=== PATIENT | female | born 1965 | race Caucasian/White ===

== ENCOUNTER 2016-08-08 20:37 | Emergency (ER) | payer OTHER ==
[~2016-08-08] VITALS: Ht 177.8 cm; Wt 75.0 kg
[2016-08-08 20:42] VITALS: BP 140/68; PULSE 76; RESP 18; TEMP 98.3; O2SAT 100
[2016-08-08] MEDS ORDERED: PARO1CAP PO (20:45)
[2016-08-08 20:51] VITALS: O2SAT 97
--- NOTE | 2016-08-08 20:54 | PD ---
HPI . Dizziness Chief Complaint: Neuro Symptoms/ Deficits Time Seen by Provider: 20:47 Travel History International Travel<30 days: No Contact w/Intl Traveler<30days: No Traveled to known affect area: No History of Present Illness HPI Patient presents with the chief complaint of dizziness. She states that she was eating dinner and she suddenly became extremely dizzy. She states that she remembers leaning over to her and telling him that she was dizzy. The next thing she remembers, she was here. She states that she does not recall getting in the car or coming here. She is now complaining with a mild occipital headache. She takes that it is dull and rates it as 4/10. The dizziness is much improved. PFSH Past Medical History Diminished Hearing: No Migraines: Yes Tetanus Vaccination: > 5 Years ?: Not Menopausal: Yes Past Surgical History Other Surgery: Yes (BREAST AUGMENTATION/RECONSTRUCTION 03/1999) Social History Alcohol Use: Yes (SOCIAL) Tobacco Use: No Substance Use: No Allergies-Medications (Allergen,Severity, Reaction): Coded Allergies: No Known Allergies (Unverified , 08/08/16) Reported Meds & Prescriptions Reported Meds & Active Scripts Active Reported Brisdelle (Paroxetine Mesylate) 7.5 Mg Cap 7.5 Mg PO DAILY Review of Systems Except as stated in HPI: all other systems reviewed are Neg General / Constitutional: No: Fever, Chills Eyes: No: Diploplia, Blurred Vision HENT: Positive: Headaches Cardiovascular: No: Chest Pain or Discomfort Respiratory: No: Shortness of Breath Gastrointestinal: No: Nausea, Vomiting Neurologic: Positive: Dizziness, Syncope, Headache, No: Weakness, Focal Abnormalities, Slurred Speech, Paresthesia, Incontinence Physical Exam Narrative GENERAL: Patient is now awake and alert and fully oriented. SKIN: Warm and dry. HEAD: Atraumatic. Normocephalic. EYES: Pupils equal and round. Extraocular movements are intact. ENT: No nasal bleeding or discharge. Mucous membranes pink and moist. NECK: Trachea midline. Neck is supple. CARDIOVASCULAR: Regular rate and rhythm. Heart sounds are normal. RESPIRATORY: No accessory muscle use. Lungs are clear with full air movement throughout. GASTROINTESTINAL: Abdomen soft, non-tender, nondistended. MUSCULOSKELETAL: No obvious deformities. No edema. NEUROLOGICAL: Awake and alert. No obvious cranial nerve deficits. Motor grossly within normal limits. Normal speech. NIH stroke score was 0. PSYCHIATRIC: Appropriate mood and affect; insight and judgment normal. Data Data Last Documented VS Vital Signs Date Time Temp Pulse Resp B/P Pulse Ox O2 Delivery O2 Flow Rate FiO2 08/08/16 21:00 76 17 137/64 100 Room Air 08/08/16 20:42 98.3 Orders Electrocardiogram (08/08/16 20:47) Basic Metabolic Panel (Bmp) (08/08/16 20:47) Complete Blood Count With Diff (08/08/16 20:47) Magnesium (Mg) (08/08/16 20:47) Ckmb (Isoenzyme) Profile (08/08/16 20:47) Troponin I (08/08/16 20:47) Ct Brain W/O Iv Contrast(Rout) (08/08/16 20:47) Ecg Monitoring (08/08/16 20:47) Iv Access Insert/Monitor (08/08/16 20:47) Oximetry (08/08/16 20:47) Sodium Chloride 0.9% Flush (Ns Flush) (08/08/16 21:00) Prochlorperazine Inj (Compazine Inj) (08/08/16 21:00) Diphenhydramine Inj (Benadryl Inj) (08/08/16 21:00) Labs Laboratory Tests Test 08/08/16 21:00 White Blood Count 6.9 TH/MM3 Red Blood Count 4.05 MIL/MM3 Hemoglobin 11.9 GM/DL Hematocrit 35.6 % Mean Corpuscular Volume 87.9 FL Mean Corpuscular Hemoglobin 29.2 PG Mean Corpuscular Hemoglobin 33.3 % Concent Red Cell Distribution Width 13.0 % Platelet Count 294 TH/MM3 Mean Platelet Volume 8.1 FL Neutrophils (%) (Auto) 42.9 % Lymphocytes (%) (Auto) 48.0 % Monocytes (%) (Auto) 7.2 % Eosinophils (%) (Auto) 1.4 % Basophils (%) (Auto) 0.5 % Neutrophils # (Auto) 3.0 TH/MM3 Lymphocytes # (Auto) 3.3 TH/MM3 Monocytes # (Auto) 0.5 TH/MM3 Eosinophils # (Auto) 0.1 TH/MM3 Basophils # (Auto) 0.0 TH/MM3 CBC Comment DIFF FINAL Differential Comment Sodium Level 138 MEQ/L Potassium Level 3.7 MEQ/L Chloride Level 103 MEQ/L Carbon Dioxide Level 27.2 MEQ/L Anion Gap 8 MEQ/L Blood Urea Nitrogen 14 MG/DL Creatinine 1.10 MG/DL Estimat Glomerular Filtration 53 ML/MIN Rate Random Glucose 170 MG/DL Calcium Level 9.0 MG/DL Magnesium Level 2.3 MG/DL Total Creatine Kinase 93 U/L Troponin I LESS THAN 0.02 NG/ML MDM Medical Decision Making Medical Screen Exam Complete: Yes Emergency Medical Condition: Yes Interpretation(s) EKG shows a normal sinus rhythm with no acute ischemic change. Differential Diagnosis My differential diagnosis of syncope includes but is not limited to cardiac arrhythmia, hypovolemia, anemia, neurological catastrophe, vasovagal response Narrative Course Patient presents complaining with dizziness followed by syncopal episode. Her physical exam on arrival is normal. Last Impressions Head CT 08/08/[id number] Signed Impressions: Service Date/Time: Wednesday, August 08, 2016 21:18 - CONCLUSION: Negative noncontrast CT brain. Hesham El MD CBC & BMP Diagram 08/08/16 21:00 Cardiac enzymes are negative. The patient's only symptom now is that she is very tired. She has been given Compazine and Benadryl. She prefers to go home. I believe that that is reasonable. The most likely etiology of her symptoms is vertigo. Diagnosis Primary Impression: Syncope Qualified Code: R55 - Syncope, unspecified syncope type Additional Impression: Dizziness Patient Instructions: Dizziness (ED), General Instructions Additional Instructions: Call your doctor Wednesday to arrange for a follow-up visit Disposition: DISCHARGE HOME Condition: Stable Sarah Spicer MD Aug 08, 2016 20:54
[2016-08-08 21:00] VITALS: BP 137/64; PULSE 76; RESP 17; O2SAT 100
[2016-08-08] MEDS ORDERED: diphenhydrAMINE HCL 50 MG/ML VIAL IV PUSH ONE (21:00)
[2016-08-08] MEDS ORDERED: SODIUM CHLORIDE 0.9% FLUSH 10 ML FLUSH IVF PRN (21:00)
[2016-08-08] MEDS ORDERED: PROCHLORPERAZINE INJ 10 MG/2 ML VIAL IV PUSH ONE (21:00)
[2016-08-08 21:20] LABS: RED BLOOD COUNT 4.05 MIL/MM3 (4.00-5.30); WHITE BLOOD COUNT 6.9 TH/MM3 (4.0-11.0)
[2016-08-08 21:21] LABS: BASOPHIL % 0.5 % (0.0-2.0); EOSINOPHIL # 0.1 TH/MM3 (0-0.4); EOSINOPHIL % 1.4 % (0.0-4.0); HEMATOCRIT 35.6 % (35.0-46.0); HEMO FLAGS DIFF FINAL; LYMPHOCYTE # 3.3 TH/MM3 (1.0-4.8); MEAN CELL VOLUME 87.9 FL (80.0-100.0); MEAN CORPUSCULAR HEMOGLOBIN 29.2 PG (27.0-34.0); MEAN CORPUSCULAR HGB CONC 33.3 % (32.0-36.0); MONO % 7.2 % (0.0-8.0); NEUT % 42.9 % (16.0-70.0); PLATELET COUNT 294 TH/MM3 (150-450)
[2016-08-08 21:46] LABS: ANION GAP 8 MEQ/L (5-15); BICARBONATE 27.2 MEQ/L (21.0-32.0); BLOOD UREA NITROGEN 14 MG/DL (7-18); CHLORIDE 103 MEQ/L (98-107); GLOMERULAR FILTRATION RATE 53 ML/MIN (>89); MAGNESIUM 2.3 MG/DL (1.5-2.5); POTASSIUM 3.7 MEQ/L (3.5-5.1); SODIUM (NA) 138 MEQ/L (136-145)
[2016-08-08 21:53] LABS: CREATINE KINASE 93 U/L (26-192)
--- NOTE | 2016-08-08 22:21 | RADRPT ---
EXAM DATE/TIME: 08/08/2016 21:18 [facility] COMPARISON: No previous studies available for comparison. INDICATIONS : Dizziness. RADIATION DOSE: 56.35 CTDIvol (mGy) MEDICAL HISTORY : Migraines. SURGICAL HISTORY : None. ENCOUNTER: Initial ACUITY: 1 day PAIN SCALE: 0/10 LOCATION: cranial TECHNIQUE: Multiple contiguous axial images were obtained of the head. Using automated exposure control and adj ustment of the mA and/or kV according to patient size, radiation dose was kept as low as reasonably a chievable to obtain optimal diagnostic quality images. FINDINGS: CEREBRUM: The ventricles are normal for age. No evidence of midline shift, mass lesion, hemorrhage or acute in farction. No extra-axial fluid collections are seen. POSTERIOR FOSSA: The cerebellum and brainstem are intact. The 4th ventricle is midline. The cerebellopontine angle i s unremarkable. EXTRACRANIAL: The visualized portion of the orbits is intact. SKULL: The calvaria is intact. No evidence of skull fracture. CONCLUSION: Negative noncontrast CT brain. Hesham El MD on August 08, 2016 at 22:18 Board Certified Radiologist. This report was verified electronically.
[2016-08-08 23:04] VITALS: BP 137/64; PULSE 82; RESP 16; O2SAT 99
--- NOTE | 2016-08-09 14:12 | EKG ---
Date Performed: 08/08/2016 Time Performed: 20:50:15 PTAGE: 51 years EKG: Diffuse nonspecific ST-T wave change NO PREVIOUS TRACING DOCTOR: Crow Lacy Interpretating Date/Time 08/09/2016 14:10:56
== END 2016-08-08 23:06 | disposition home or self-care (01) ==
LOC: NEPC 20:37
DX: R55 Syncope and collapse (principal)
CPT/HCPCS: 70450; 80048; 82550; 83735; 84484; 85025; 93005; 96374; 96375; 99285; J0780; J1200